=== PATIENT | female | born 1995 | race Caucasian/White ===

== ENCOUNTER → 2019-01-10 | Outpatient (CLI) | payer OTHER ==
--- NOTE | 2019-01-15 20:15 | RT HOLTER TEST ---
[place] [facility] [place] ANGELO JONAS : [id number] MR: [id number]: [id number] EXAM DATE: ORDERING PHYSICIAN: ARIANNA SANDHU TECHNOLOGIST: NOHEMY Clark-up date: 2019-01-10 16:12:00 Duration: 24:00:00 Test Indications: R42 Medications: NO DIARY RETURNED [id number] QRS complexes * Ventricular ectopics which represent % of total QRS comp. 1 Supraventricular ectopics which represent <1 % of total QRS comp. * Paced QRS complexes which represent % of total QRS comp. VENTRICULAR ECTOPY * Isolated * Bigeminal Cycles * Couplets * Runs * Beats in Runs * Beats LONGEST at * BPM at :: -- * Beats FASTEST at * BPM at :: -- SUPRAVENTRICULAR ECTOPY 1 Isolated 0 Couplets 0 Runs 0 Beats in Runs * Beats LONGEST at * BPM at :: -- * Beats FASTEST at * BPM at :: -- HEART RATES 54 MIN at 05:40:25 2019-01-11 89 AVG 141 MAX at 14:44:10 2019-01-11 LONGEST RR 1.240 secs at 05:20:04 2019-01-11 S-T LEVELS Channel 1 -12.800 mm MIN at 16:12:00 2019-01-10 -12.800 mm MAX at 16:12:00 2019-01-10 Channel 2 -12.800 mm MIN at 16:12:00 2019-01-10 -12.800 mm MAX at 16:12:00 2019-01-10 Channel 3 -12.800 mm MIN at 16:12:00 2019-01-10 -12.800 mm MAX at 16:12:00 2019-01-10 Sinus rhythm throughout study. Negative halter study. Confirmed by Mike Sarmiento ([id number]) on 01/15/2019 8:14:53 PM Referred By: Overread By: Mike Hurtado
== END ==
LOC: RESP 15:52
PROVIDERS: ATTEND Nurse Practitioner Family
DX: R53.83 Other fatigue (principal); R42 Dizziness and giddiness
CPT/HCPCS: 93225